=== PATIENT | female | born 2000 | race American Indian/Alaskan Native ===

== ENCOUNTER 2020-04-05 18:25 | Emergency (ER) | payer SELFPAY ==
[2020-04-05 18:29] VITALS: BP 131/74
--- NOTE | 2020-04-05 19:26 | Emergency Department Report ---
ED General Adult HPI - General Chief complaint: Vaginal Bleeding Stated complaint: 6WKS BLEEDING Time Seen by Provider: 04/05/20 19:25 Source: patient Mode of arrival: Ambulatory Limitations: No Limitations - History of Present Illness Initial comments: 19 yo AA F pt presents with complaints of vaginal bleeding in x today. She reports she is 6 weeks and is not currently following with an OBGYN. Pt describes the bleeding as spotty and states she has some intermittent mild lower abdominal cramping, however denies any current pain or worsening of pain. She reports she was diagnosed with trichomonas 3 weeks ago and has not taken the prescribed antibiotics. She denies any dysuria/hematuria/urinary frequency, dyspareunia, vaginal discharge, or fever/chills/sweats. She states all other STI tests were negative. SHe is still currently sexually active with her partner per pt. - Related Data Previous Rx's Medication Instructions Recorded Last Taken Type Ibuprofen [Motrin 800 MG tab] 800 mg PO Q8HR PRN #30 tablet 09/18/19 Unknown Rx Allergies Allergy/AdvReac Type Severity Reaction Status Date / Time No Known Allergies Allergy Verified 04/05/20 18:25 ED Review of Systems ROS: Stated complaint: 6WKS BLEEDING Other details as noted in HPI Constitutional: denies: chills, fever, malaise Respiratory: denies: cough, shortness of breath Cardiovascular: denies: chest pain Gastrointestinal: as per HPI. denies: nausea, vomiting, diarrhea Genitourinary: as per HPI. denies: dyspareunia Musculoskeletal: denies: joint swelling, arthralgia Skin: denies: rash, lesions, change in color Hematological/Lymphatic: denies: swollen glands ED Past Medical Hx - Past Medical History Previous Medical History?: No - Surgical History Past Surgical History?: No - Social History Smoking Status: Never Smoker - Medications Home Medications: Home Medications Medication Instructions Recorded Confirmed Last Taken Type Ibuprofen [Motrin 800 MG tab] 800 mg PO Q8HR PRN #30 tablet 09/18/19 Unknown Rx ED Physical Exam - General Limitations: No Limitations General appearance: alert, in no apparent distress - Head Head exam: Present: atraumatic, normocephalic - Eye Eye exam: Present: normal appearance. Absent: scleral icterus - Neck Neck exam: Present: normal inspection - Respiratory Respiratory exam: Present: normal lung sounds bilaterally. Absent: respiratory distress - Cardiovascular Cardiovascular Exam: Present: regular rate, normal rhythm. Absent: systolic murmur, diastolic murmur, rubs, gallop - GI/Abdominal GI/Abdominal exam: Present: soft, normal bowel sounds. Absent: distended, tenderness, guarding, rebound, rigid - Extremities Exam Extremities exam: Present: full ROM - Neurological Exam Neurological exam: Present: alert, oriented X3 - Psychiatric Psychiatric exam: Present: normal affect, normal mood - Skin Skin exam: Present: warm, dry, intact, normal color. Absent: rash ED Course Vital Signs 04/05/20 04/05/20 18:27 23:20 Temperature 98.1 F Pulse Rate 72 87 Respiratory 18 18 Rate Blood Pressure 131/74 O2 Sat by Pulse 100 98 Oximetry ED Medical Decision Making - Lab Data Result diagrams: 04/05/20 19:31 04/05/20 19:31 Lab Results 04/05/20 04/05/20 04/05/20 Range/Units 19:31 19:31 19:31 WBC 7.6 (4.5-11.0) K/mm3 RBC 4.40 (3.65-5.03) M/mm3 Hgb 10.9 (10.1-14.3) gm/dl Hct 34.5 (30.3-42.9) % MCV 78 L (79-97) fl MCH 25 L (28-32) pg MCHC 32 (30-34) % RDW 16.6 H (13.2-15.2) % Plt Count 318 (140-440) K/mm3 Lymph % (Auto) 35.3 H (13.4-35.0) % Emery % (Auto) 10.4 H (0.0-7.3) % Eos % (Auto) 1.0 (0.0-4.3) % Baso % (Auto) 0.8 (0.0-1.8) % Lymph # (Auto) 2.7 (1.2-5.4) K/mm3 Emery # (Auto) 0.8 (0.0-0.8) K/mm3 Eos # (Auto) 0.1 (0.0-0.4) K/mm3 Baso # (Auto) 0.1 (0.0-0.1) K/mm3 Seg Neutrophils % 52.5 (40.0-70.0) % Seg Neutrophils # 4.0 (1.8-7.7) K/mm3 Sodium 136 L (137-145) mmol/L Potassium 4.0 (3.6-5.0) mmol/L Chloride 103.2 (98-107) mmol/L Carbon Dioxide 23 (22-30) mmol/L Anion Gap 14 mmol/L BUN 6 L (7-17) mg/dL Creatinine 0.7 (0.6-1.2) mg/dL Estimated GFR > 60 ml/min BUN/Creatinine Ratio 9 % Glucose 89 (65-100) mg/dL Calcium 9.6 (8.4-10.2) mg/dL Total Bilirubin 0.60 (0.1-1.2) mg/dL AST 15 (5-40) units/L ALT 12 (7-56) units/L Alkaline Phosphatase 30 L (35-129) units/L Total Protein 7.8 (6.3-8.2) g/dL Albumin 4.3 (3.9-5) g/dL Albumin/Globulin Ratio 1.2 % HCG, Quant 80489 H (0-4) mIU/mL Urine Color (Yellow) Urine Turbidity (Clear) Urine pH (5.0-7.0) Ur Specific [place] (1.003-1.030) Urine Protein (Negative) mg/dL Urine Glucose (UA) (Negative) mg/dL Urine Ketones (Negative) mg/dL Urine Blood (Negative) Urine Nitrite (Negative) Urine Bilirubin (Negative) Urine Urobilinogen (<2.0) mg/dL Ur Leukocyte Esterase (Negative) Urine WBC (Auto) (0.0-6.0) /HPF Urine RBC (Auto) (0.0-6.0) /HPF U Epithel Cells (Auto) (0-13.0) /HPF Urine Mucus /HPF Blood Type 04/05/20 04/05/20 Range/Units 19:31 Unknown WBC (4.5-11.0) K/mm3 RBC (3.65-5.03) M/mm3 Hgb (10.1-14.3) gm/dl Hct (30.3-42.9) % MCV (79-97) fl MCH (28-32) pg MCHC (30-34) % RDW (13.2-15.2) % Plt Count (140-440) K/mm3 Lymph % (Auto) (13.4-35.0) % Emery % (Auto) (0.0-7.3) % Eos % (Auto) (0.0-4.3) % Baso % (Auto) (0.0-1.8) % Lymph # (Auto) (1.2-5.4) K/mm3 Emery # (Auto) (0.0-0.8) K/mm3 Eos # (Auto) (0.0-0.4) K/mm3 Baso # (Auto) (0.0-0.1) K/mm3 Seg Neutrophils % (40.0-70.0) % Seg Neutrophils # (1.8-7.7) K/mm3 Sodium (137-145) mmol/L Potassium (3.6-5.0) mmol/L Chloride (98-107) mmol/L Carbon Dioxide (22-30) mmol/L Anion Gap mmol/L BUN (7-17) mg/dL Creatinine (0.6-1.2) mg/dL Estimated GFR ml/min BUN/Creatinine Ratio % Glucose (65-100) mg/dL Calcium (8.4-10.2) mg/dL Total Bilirubin (0.1-1.2) mg/dL AST (5-40) units/L ALT (7-56) units/L Alkaline Phosphatase (35-129) units/L Total Protein (6.3-8.2) g/dL Albumin (3.9-5) g/dL Albumin/Globulin Ratio % HCG, Quant (0-4) mIU/mL Urine Color Yellow (Yellow) Urine Turbidity Clear (Clear) Urine pH 7.0 (5.0-7.0) Ur Specific [place] 1.014 (1.003-1.030) Urine Protein <15 mg/dl (Negative) mg/dL Urine Glucose (UA) Neg (Negative) mg/dL Urine Ketones Neg (Negative) mg/dL Urine Blood Neg (Negative) Urine Nitrite Neg (Negative) Urine Bilirubin Neg (Negative) Urine Urobilinogen < 2.0 (<2.0) mg/dL Ur Leukocyte Esterase Neg (Negative) Urine WBC (Auto) 2.0 (0.0-6.0) /HPF Urine RBC (Auto) 1.0 (0.0-6.0) /HPF U Epithel Cells (Auto) 1.0 (0-13.0) /HPF Urine Mucus Few /HPF Blood Type B POSITIVE - Radiology Data Radiology results: report reviewed ULTRASOUND OBSTETRIC INDICATION / CLINICAL INFORMATION: vaginal bleeding, 6 weeks . Clinical Gestational Age (GA): 6.4 weeks.days TECHNIQUE: Transabdominal. COMPARISON: None available. FINDINGS: GESTATIONAL SAC: Well-defined oval shape and intrauterine in location. YOLK SAC: No significant abnormality. EMBRYO/FETUS: No significant abnormality. - [place]-Rump Length = 0.53 cm = 6.2 weeks.days - Heart Rate, beats per minute (if present) = 121 UTERUS: The uterus measures 7.9 x 4.8 x 5.9 cm and is normal in echogenicity. The endometrial stripe measures 2.8 cm. ADNEXA: The right ovary measures 2.7 x 1.9 x 1.9 cm and the left ovary measures 2.7 x 2.8 x 2.3 cm. Both ovaries are normal in echogenicity and demonstrate normal Doppler flow. FREE FLUID: None. ADDITIONAL FINDINGS: None. IMPRESSION: 1. Single, living intrauterine with estimated sonographic age of 6.2 weeks.days. Continued obstetric follow-up is recommended. - Medical Decision Making 19 yo AA F pt presents with complaints of vaginal bleeding in x today. She reports she is 6 weeks and is not currently following with an OBGYN. Pt describes the bleeding as spotty and states she has some intermittent mild lower abdominal cramping, however denies any current pain or worsening of pain. She reports she was diagnosed with trichomonas 3 weeks ago and has not taken the prescribed antibiotics. She denies any dysuria/hematuria/urinary frequency, dyspareunia, vaginal discharge, or fever/chills/sweats. She states all other STI tests were negative. SHe is still currently sexually active with her partner per pt. OB ultrasound is negative for any abnormalities and shows a 6-week 2-day IUP. Labs are normal. Given patient's history of trichomonas and noncompliance with prescribed antibiotics, patient was given 2 g of metronidazole here today and informed to follow-up with MEDICAL STAFF DIRECTOR within 2 to 3 days. Also discussed the importance of refraining from sexual activity to her partner is tested and treated. Her vitals are normal, she is well-appearing, she is stable for discharge home. Strict return precautions were discussed in detail with patient who verbalizes understanding peer Critical care attestation.: If time is entered above; I have spent that time in minutes in the direct care of this critically ill patient, excluding procedure time. ED Disposition Clinical Impression: Bleeding in early , Trichomonas vaginalis infection Disposition: TO HOME OR SELFCARE Is pt being admited?: No Condition: Stable Instructions: Vaginal Bleeding During , First Trimester, Trichomoniasis Referrals: [facility] [Provider Group] - 3-5 Days
[2020-04-05 19:44] LABS: Basophils # (Auto) 0.1 K/mm3 (0.0-0.1); Basophils % (Auto) 0.8 % (0.0-1.8); Eosinophils # (Auto) 0.1 K/mm3 (0.0-0.4); Hematocrit 34.5 % (30.3-42.9); Hemoglobin 10.9 gm/dl (10.1-14.3); Lymphocytes # (Auto) 2.7 K/mm3 (1.2-5.4); Lymphocytes % (Auto) 35.3 % (13.4-35.0); Mean Corpuscular HGB Conc 32 % (30-34); Mean Corpuscular Volume 78 fl (79-97); Monocytes # (Auto) 0.8 K/mm3 (0.0-0.8); Monocytes % (Auto) 10.4 % (0.0-7.3); Platelet Count 318 K/mm3 (140-440); Red Cell Distribution Width 16.6 % (13.2-15.2)
[2020-04-05 19:58] LABS: Alanine Aminotransferase 12 units/L (7-56); Albumin 4.3 g/dL (3.9-5); Blood Urea Nitrogen 6 mg/dL (7-17); Calcium 9.6 mg/dL (8.4-10.2); Hemolysis Index 0
[2020-04-05 20:03] LABS: BUN/Creatinine Ratio 9
[2020-04-05 21:44] LABS: Bilirubin,Urine NEG (Negative); Blood,Urine NEG (Negative); Color,Urine Yellow (Yellow); Mucus,Urine FEW /HPF; Protein,Urine <15 mg/dL mg/dL (Negative); Urobilinogen,Urine < 2.0 mg/dL (<2.0)
--- NOTE | 2020-04-05 22:07 | Ultrasound Report ---
ULTRASOUND OBSTETRIC INDICATION / CLINICAL INFORMATION: vaginal bleeding, 6 weeks . Clinical Gestational Age (GA): 6.4 weeks.days TECHNIQUE: Transabdominal. COMPARISON: None available. FINDINGS: GESTATIONAL SAC: Well-defined oval shape and intrauterine in location. YOLK SAC: No significant abnormality. EMBRYO/FETUS: No significant abnormality. - [place]-Rump Length = 0.53 cm = 6.2 weeks.days - Heart Rate, beats per minute (if present) = 121 UTERUS: The uterus measures 7.9 x 4.8 x 5.9 cm and is normal in echogenicity. The endometrial stripe measures 2.8 cm. ADNEXA: The right ovary measures 2.7 x 1.9 x 1.9 cm and the left ovary measures 2.7 x 2.8 x 2.3 cm. B oth ovaries are normal in echogenicity and demonstrate normal Doppler flow. FREE FLUID: None. ADDITIONAL FINDINGS: None. IMPRESSION: 1. Single, living intrauterine with estimated sonographic age of 6.2 weeks.days. Continued obstetric follow-up is recommended. Signer Name: iRky Kuhn MD Signed: 04/05/2020 10:03 PM Workstation Name: [id number]
[2020-04-05] MEDS ORDERED: metroNIDAZOLE 500 MG TAB PO ONE (22:51)
== END 2020-04-05 23:20 | disposition home or self-care (01) ==
LOC: ED 18:25
DX: O20.9 Hemorrhage in early pregnancy, unspecified (principal); O98.811 Other maternal infectious and parasitic diseases complicating pregnancy, first trimester; Z3A.01 Less than 8 weeks gestation of pregnancy; Z79.899 Other long term (current) drug therapy
CPT/HCPCS: 36415; 76801; 80053; 81001; 84702; 85025; 86900; 86901